=== PATIENT | male | born 1945 | race Caucasian/White ===

== ENCOUNTER → 2018-02-18 | Outpatient (CLI) | payer OTHER, MEDICARE, BC | LOC: M SLEEP 19:35 | DX: G47.33 Obstructive sleep apnea (adult) (pediatric) (principal); G47.61 Periodic limb movement disorder | CPT/HCPCS: 95810 ==

== ENCOUNTER → 2020-03-07 | Outpatient (CLI) | payer MEDICARE, BC, OTHER ==
[~2020-03-07] MED LIST: ISOVUE-370 76% 100ML VIAL As Ordered ONE
--- NOTE | 2020-04-28 10:24 | REP ---
HIGH RESOLUTION CT STUDY OF THE CHEST WITH IV CONTRAST: FINDINGS: Sequential 1 mm high resolution images are acquired. These demonstrate advanced peripheral pulmonary fibrosis and extensive honeycombing in the subpleural distribution in the upper lobes and lower lobes in a pattern which appears essentially unchanged from the 12/12/16 prior study. No lung mass or new consolidation is seen. No pleural or pericardial effusion is appreciated. There is advanced diffuse fatty infiltration of the liver. There is a 1.9 cm area of increased density in the dome of the liver consistent with a benign hemangioma versus an area of fat sparing. There is some fat sparing near the gallbladder at the bottom of the imaging field of view. No adrenal abnormality is observed. There are scattered subcarinal and mediastinal lymph nodes which are felt to be unchanged. The largest is a right paratracheal lymph node measuring 13 mm in short axis dimension. There is an 8 mm anterior mediastinal lymph node which is slightly larger than on the previous study of 6 mm. No bony destructive lesion is seen. IMPRESSION: Advanced COPD subpleural fibrosis pattern with honeycombing fairly extensively. No significant change from the 12/12/16 prior study. MTDD
== END ==
LOC: M RAD 08:00
PROVIDERS: ATTEND Internal Medicine Pulmonary Disease
DX: J84.112 Idiopathic pulmonary fibrosis (principal); J44.9 Chronic obstructive pulmonary disease, unspecified; K76.0 Fatty (change of) liver, not elsewhere classified; R59.0 Localized enlarged lymph nodes
CPT/HCPCS: 71260; Q9967

== ENCOUNTER → 2020-03-16 | Outpatient (REF) | payer MEDICARE, OTHER, BC | LOC: M LAB REF 14:08 | PROVIDERS: ATTEND Internal Medicine Pulmonary Disease | DX: J84.112 Idiopathic pulmonary fibrosis (principal) ==

== ENCOUNTER → 2020-07-05 | Outpatient (REF) | payer MEDICARE, OTHER, BC ==
[2020-07-05 17:20] LABS: HEMATOCRIT 38.6 % (42.0-52.0); MEAN CORPUSCULAR HEMOGLOBIN 33.2 pg (27.0-33.0); MEAN CORPUSCULAR HGB CONC 33.7 g/dl (32.0-36.5); MEAN CORPUSCULAR VOLUME 98.5 fl (80.0-96.0); PLATELET COUNT, AUTOMATED 211 10^3/uL (150-450); RED BLOOD COUNT 3.92 10^6/uL (4.30-6.10); WHITE BLOOD COUNT 8.7 10^3/uL (4.0-10.0)
[2020-07-05 17:44] LABS: ALBUMIN 3.7 GM/DL (3.2-5.2); BILIRUBIN,DIRECT 0.1 MG/DL (0.0-0.2); BILIRUBIN,TOTAL 0.4 MG/DL (0.2-1.0); TOTAL PROTEIN 8.1 GM/DL (6.4-8.2)
== END ==
LOC: M LAB REF 16:46
PROVIDERS: ATTEND Internal Medicine Pulmonary Disease
DX: J84.112 Idiopathic pulmonary fibrosis (principal)

== ENCOUNTER → 2021-01-15 | Outpatient (REF) | payer MEDICARE, OTHER, BC ==
[2021-01-15 19:03] LABS: ALBUMIN 3.3 GM/DL (3.2-5.2); BILIRUBIN,DIRECT 0.1 MG/DL (0.0-0.2); BILIRUBIN,TOTAL 0.4 MG/DL (0.2-1.0); TOTAL PROTEIN 8.1 GM/DL (6.4-8.2)
== END ==
LOC: M LAB REF 16:49
PROVIDERS: ATTEND Internal Medicine Pulmonary Disease
DX: J84.112 Idiopathic pulmonary fibrosis (principal)

== ENCOUNTER → 2022-01-11 | Outpatient (CLI) | payer MEDICARE, BC, OTHER ==
[~2022-01-11] MED LIST changes: +ALLO100T PO; +ASPI81CH33 PO; +FISH1000 PO; -ISOVUE-370 76% 100ML VIAL As Ordered ONE; +LIDOCAINE 1% MDV 20ML VIAL As Ordered ONE; +LOSA100T45 PO; +MULT-90 PO; +RA T500C2 PO; +RABE1TAB4 PO; +SERT25TA85 PO; +vitamin D PO
[2022-01-11 15:35] VITALS: BP 156/82
== END ==
LOC: M IRPRO 12:17
PROVIDERS: ATTEND Internal Medicine Pulmonary Disease
DX: C34.31 Malignant neoplasm of lower lobe, right bronchus or lung (principal)

== ENCOUNTER → 2022-02-05 | Outpatient (CLI) | payer MEDICARE, BC, OTHER ==
[~2022-02-05] MED LIST changes: +ATOR1TAB21 PO; -LIDOCAINE 1% MDV 20ML VIAL As Ordered ONE
== END ==
LOC: M ONCR 12:54
PROVIDERS: ATTEND General Practice
DX: C34.31 Malignant neoplasm of lower lobe, right bronchus or lung (principal); R53.83 Other fatigue; R91.1 Solitary pulmonary nodule; J98.4 Other disorders of lung; Z79.82 Long term (current) use of aspirin; Z79.899 Other long term (current) drug therapy; Z87.891 Personal history of nicotine dependence; Z99.81 Dependence on supplemental oxygen

== ENCOUNTER 2022-03-01 11:44 | Outpatient (RCR) | payer MEDICARE, BC, OTHER | END 2022-03-10 | LOC: M ONCR 11:44 | PROVIDERS: ATTEND General Practice | DX: C34.31 Malignant neoplasm of lower lobe, right bronchus or lung (principal) ==

== ENCOUNTER → 2022-04-16 | Outpatient (CLI) | payer MEDICARE, OTHER | LOC: M PLAIMG 11:20 | PROVIDERS: ATTEND Internal Medicine Pulmonary Disease | DX: C34.31 Malignant neoplasm of lower lobe, right bronchus or lung (principal) ==

== ENCOUNTER → 2022-05-29 | Outpatient (CLI) | payer OTHER, MEDICARE, BC | LOC: M ONCR 11:09 | PROVIDERS: ATTEND General Practice | DX: C34.31 Malignant neoplasm of lower lobe, right bronchus or lung (principal); J84.112 Idiopathic pulmonary fibrosis; R91.1 Solitary pulmonary nodule; R63.5 Abnormal weight gain; Z79.82 Long term (current) use of aspirin; Z79.899 Other long term (current) drug therapy; Z87.891 Personal history of nicotine dependence; Z92.3 Personal history of irradiation; Z99.81 Dependence on supplemental oxygen ==

== ENCOUNTER → 2022-07-16 | Outpatient (REF) | payer MEDICARE, BC, OTHER ==
[2022-07-16 17:46] LABS: BASO # 0.1 10^3/uL (0.0-0.2); BASO % 0.6 % (0.0-1.0); EOS # 0.5 10^3/uL (0.0-0.5); EOS % 4.2 % (0.0-3.0); HEMATOCRIT 33.6 % (42.0-52.0); HEMOGLOBIN 10.3 g/dl (13.5-17.5); MEAN CORPUSCULAR HGB CONC 30.7 g/dl (32.0-36.5); MEAN CORPUSCULAR VOLUME 81.6 fl (80.0-96.0); MONO # 0.8 10^3/uL (0.0-0.8); MONO % 6.9 % (2.0-8.0); NEUTROPHILS # 7.9 10^3/uL (1.5-8.5); NEUTROPHILS % 69.9 % (36.0-66.0); PLATELET COUNT, AUTOMATED 285 10^3/uL (150-450); RED BLOOD COUNT 4.12 10^6/uL (4.30-6.10); WHITE BLOOD COUNT 11.2 10^3/uL (4.0-10.0)
[2022-07-16 18:42] LABS: PERCENT SATURATION 10.7 % (19.7-50.0)
== END ==
LOC: M LAB REF 17:19
PROVIDERS: ATTEND Internal Medicine Pulmonary Disease
DX: D64.9 Anemia, unspecified (principal); R06.00 Dyspnea, unspecified

== ENCOUNTER → 2022-08-23 | Outpatient (CLI) | payer OTHER ==
[2022-08-23 10:45] LABS: HEMATOCRIT 37.4 % (42.0-52.0); HEMOGLOBIN 11.5 g/dl (13.5-17.5); MEAN CORPUSCULAR HEMOGLOBIN 26.9 pg (27.0-33.0); MEAN CORPUSCULAR HGB CONC 30.7 g/dl (32.0-36.5); MEAN CORPUSCULAR VOLUME 87.4 fl (80.0-96.0); PLATELET COUNT, AUTOMATED 175 10^3/uL (150-450); RED BLOOD COUNT 4.28 10^6/uL (4.30-6.10); WHITE BLOOD COUNT 7.9 10^3/uL (4.0-10.0)
== END ==
LOC: M LAB 09:56
PROVIDERS: ATTEND Internal Medicine Pulmonary Disease
DX: D64.9 Anemia, unspecified (principal)

== ENCOUNTER → 2022-09-10 | Outpatient (REF) | payer MEDICARE, OTHER ==
[2022-09-10 13:45] LABS: FOLATE 17.5 NG/ML (>5.4)
[2022-09-10 13:53] LABS: PERCENT SATURATION 19.9 % (19.7-50.0)
== END ==
LOC: M LAB REF 12:22
PROVIDERS: ATTEND Internal Medicine
DX: D64.9 Anemia, unspecified (principal)

== ENCOUNTER → 2022-11-29 | Outpatient (CLI) | payer MEDICARE, OTHER | LOC: M ONCR 11:37 | PROVIDERS: ATTEND General Practice | DX: C34.31 Malignant neoplasm of lower lobe, right bronchus or lung (principal); J84.112 Idiopathic pulmonary fibrosis; Z92.3 Personal history of irradiation; Z99.81 Dependence on supplemental oxygen ==